=== PATIENT | female | born 1980 | race Caucasian/White ===

== ENCOUNTER 2020-11-06 23:25 | Emergency (ER) | payer SELFPAY ==
[~2020-11-06 23:25] MED LIST: ACETAMINOPHEN325 MG PO; ALLERGY RELIEF60 MG PO; ASPIRIN EC81 MG PO; ATIVAN1 MG PO; CEFUROXIME500 MG PO; CELEXA 20MG TAB20 MG PO; CELEXA40 MG PO; COLACE 100MG C100 MG PO; CYANOCOBAL1000 MCG/1 INJ; CYCLOBENZAPRINE10 MG PO; ESTRADIOL2 MG PO; FLEXERIL 10 MG10 MG PO; IBUPROFEN600 MG PO; MIRALAX17 GM PO; NORCO 5-325 TA1 EACH PO; PREDNISONE 10 M10 MG PO; PREDNISONE20 MG PO; PRILOSEC OTC20 MG PO; PROGESTERONE200 MG PO; PYRIDIUM200 MG PO; REQUIP3 MG PO; TAMIFLU75 MG PO; TOPAMAX50 MG PO; VALIUM 5 MG TAB5 MG PO; VITAMIN D21250 MCG PO; ZOFRAN ODT 4 MG4 MG PO; ZOFRAN ODT 4 MG4 MG SL
[2020-11-07 02:55] LABS: RED BLOOD COUNT 4.05 M/UL (4.00-5.10); WHITE BLOOD COUNT 7.6 K/UL (4.5-11.0)
[2020-11-07 03:05] LABS: BUN/CREATININE RATIO 13 (0-10)
[2020-11-07] MEDS ORDERED: LODINE CAP 300300 MG PO (03:36)
[2020-11-07] MEDS ORDERED: ZOFRAN ODT 4 MG4 MG PO (03:36)
[2020-11-07] MEDS ORDERED: OMNICEF 300 MG300 MG PO (03:36)
== END 2020-11-07 03:50 | disposition home or self-care (01) ==
LOC: ER1 23:25
DX: N39.0 Urinary tract infection, site not specified (principal); Z87.442 Personal history of urinary calculi; Z90.49 Acquired absence of other specified parts of digestive tract; Z90.710 Acquired absence of both cervix and uterus
CPT/HCPCS: 80053; 81001; 83605; 85025; 87086; 96374; 96375; 96376; 99284; J0696; J2270; J2405; J7030

== ENCOUNTER 2021-01-30 18:39 | Observation (INO) | payer OTHER ==
[~2021-01-30] VITALS: Ht 157.5 cm; Wt 64.4 kg
[~2021-01-30 18:39] MED LIST changes: +LODINE CAP 300300 MG PO; +OMNICEF 300 MG300 MG PO
[2021-01-30 19:42] LABS: HEMOGLOBIN 13.8 gm/dl (12.3-15.3); RED BLOOD COUNT 4.53 M/UL (4.00-5.10); WHITE BLOOD COUNT 9.9 K/UL (4.5-11.0)
[2021-01-30 19:58] LABS: BUN/CREATININE RATIO 12 (0-10)
[2021-01-31 08:52] LABS: HEMOGLOBIN 12.4 gm/dl (12.3-15.3); RED BLOOD COUNT 4.15 M/UL (4.00-5.10); WHITE BLOOD COUNT 11.5 K/UL (4.5-11.0)
[2021-01-31 09:24] LABS: BUN/CREATININE RATIO 20 (0-10)
[2021-01-31] MEDS ORDERED: CELEXA40 MG PO (10:48)
[2021-01-31] MEDS ORDERED: TOPAMAX50 MG PO (10:48)
[2021-01-31] MEDS ORDERED: SINGULAIR10 MG PO (10:49)
[2021-01-31] MEDS ORDERED: PRILOSEC OTC20 MG PO (10:49)
[2021-01-31] MEDS ORDERED: ESTRADIOL2 MG PO (10:50)
[2021-01-31] MEDS ORDERED: PROMETRIUM 200200 MG PO (10:51)
[2021-01-31] MEDS ORDERED: [UNRECOGNIZED DRUG - OTHER] SL (10:55)
[2021-02-01] MEDS ORDERED: HYDROCODON-ACE1 EAC2 PO (15:47)
[2021-02-01] MEDS ORDERED: CEFUROXIME500 MG PO (15:57)
== END 2021-02-01 17:44 | disposition home or self-care (01) ==
LOC: ER1 18:39 → CDU 01-31 00:20 → M/S 01-31 00:20
PROVIDERS: Emergency Medicine; ADMIT Emergency Medicine
DX: M54.50 Low back pain, unspecified (principal); G89.29 Other chronic pain; K21.9 Gastro-esophageal reflux disease without esophagitis; G43.909 Migraine, unspecified, not intractable, without status migrainosus; J45.909 Unspecified asthma, uncomplicated; N32.89 Other specified disorders of bladder; G25.81 Restless legs syndrome; Z20.822 Contact with and (suspected) exposure to COVID-19; Z79.890 Hormone replacement therapy; Z79.899 Other long term (current) drug therapy
CPT/HCPCS: 51798; 72131; 72158; 80048; 80053; 81001; 85025; 96374; 96375; 96376; 99284; A9577; G0378; J0696; J1170; J1650; J1885; J2270; J2360; J2920; J2930; Q9967; U0002

== ENCOUNTER 2021-02-17 19:07 | Emergency (ER) | payer OTHER ==
[~2021-02-17 19:07] MED LIST changes: +HYDROCODON-ACE1 EAC2 PO; +PROMETRIUM 200200 MG PO; +SINGULAIR10 MG PO; +[UNRECOGNIZED DRUG - OTHER] SL
[2021-02-17 21:42] LABS: HEMOGLOBIN 14.3 gm/dl (12.3-15.3); RED BLOOD COUNT 4.67 M/UL (4.00-5.10)
[2021-02-17 22:03] LABS: BUN/CREATININE RATIO 13 (0-10)
[2021-02-18] MEDS ORDERED: MUCINEX DM ER1 EACH PO (00:18)
[2021-02-18] MEDS ORDERED: IBUPROFEN800 MG PO (00:18)
[2021-02-18] MEDS ORDERED: ONDANSETRON ODT4 MG SL (00:18)
== END 2021-02-18 00:46 | disposition home or self-care (01) ==
LOC: ER1 19:07
PROVIDERS: Physician Assistant
DX: U07.1 COVID-19 (principal); J45.909 Unspecified asthma, uncomplicated; G40.909 Epilepsy, unspecified, not intractable, without status epilepticus
CPT/HCPCS: 71045; 80053; 81001; 82550; 82553; 83690; 83874; 84484; 85025; 85379; 87081; 87880; 93005; 96365; 96375; 99284; J1885; J2405; J2550; J7030; Q9967

== ENCOUNTER 2021-03-10 17:00 | Emergency (ER) | payer BC ==
[~2021-03-10 17:00] MED LIST changes: +IBUPROFEN800 MG PO; +MUCINEX DM ER1 EACH PO; +ONDANSETRON ODT4 MG SL
[2021-03-10 18:03] LABS: RED BLOOD COUNT 4.21 M/UL (4.00-5.10); WHITE BLOOD COUNT 9.4 K/UL (4.5-11.0)
[2021-03-10 19:01] LABS: BUN/CREATININE RATIO 16 (0-10)
[2021-03-11] MEDS ORDERED: LODINE CAP 300300 MG PO (00:23)
== END 2021-03-11 00:37 | disposition home or self-care (01) ==
LOC: ER1 17:00
PROVIDERS: Physician Assistant
DX: R07.89 Other chest pain (principal)
CPT/HCPCS: 71045; 73030; 80053; 82550; 82553; 83874; 84484; 85025; 85379; 85610; 85730; 93005; 96374; 96375; 99285; J1885; J2360; Q9967

== ENCOUNTER 2021-05-12 18:13 | Emergency (ER) | payer BC ==
[2021-05-12 23:37] LABS: HEMOGLOBIN 12.8 gm/dl (12.3-15.3); RED BLOOD COUNT 4.25 M/UL (4.00-5.10); WHITE BLOOD COUNT 9.3 K/UL (4.5-11.0)
[2021-05-13 00:07] LABS: BUN/CREATININE RATIO 14 (0-10)
[2021-05-13] MEDS ORDERED: PERCOCET 5/325 T1 EA PO (01:11)
== END 2021-05-13 01:35 | disposition home or self-care (01) ==
LOC: ER1 18:13
PROVIDERS: Family Medicine
DX: M54.9 Dorsalgia, unspecified (principal); M79.7 Fibromyalgia
CPT/HCPCS: 80053; 81001; 83690; 84703; 85025; 87086; 96374; 96375; 99284; J2060; J2405; J7030; Q9967

== ENCOUNTER 2021-06-01 16:24 | Emergency (ER) | payer BC ==
[~2021-06-01 16:24] MED LIST changes: +PERCOCET 5/325 T1 EA PO
[2021-06-01 18:15] LABS: RED BLOOD COUNT 4.67 M/UL (4.00-5.10); WHITE BLOOD COUNT 9.4 K/UL (4.5-11.0)
[2021-06-01 18:55] LABS: BUN/CREATININE RATIO 14 (0-10)
== END 2021-06-01 19:47 | disposition home or self-care (01) ==
LOC: ER1 16:24
PROVIDERS: Emergency Medicine
DX: R10.31 Right lower quadrant pain (principal); R10.813 Right lower quadrant abdominal tenderness; R11.2 Nausea with vomiting, unspecified; R19.7 Diarrhea, unspecified; Z87.39 Personal history of other diseases of the musculoskeletal system and connective tissue
CPT/HCPCS: 80053; 83690; 85025; 96374; 96375; 99284; J0780; J1170; J1885; J2405; Q9967

== ENCOUNTER 2021-06-26 16:47 | Emergency (ER) | payer BC ==
[2021-06-26 17:43] LABS: HEMOGLOBIN 15.1 gm/dl (12.3-15.3); RED BLOOD COUNT 4.97 M/UL (4.00-5.10); WHITE BLOOD COUNT 10.4 K/UL (4.5-11.0)
[2021-06-26 18:08] LABS: BUN/CREATININE RATIO 16 (0-10)
[2021-06-26] MEDS ORDERED: HYDROCODON-ACE1 EAC6 PO (22:34)
[2021-06-26] MEDS ORDERED: ZOFRAN ODT 4 MG4 MG GT (22:34)
== END 2021-06-26 22:45 | disposition home or self-care (01) ==
LOC: ER1 16:47
PROVIDERS: Physician Assistant
DX: R10.9 Unspecified abdominal pain (principal); Z87.442 Personal history of urinary calculi
CPT/HCPCS: 80053; 81001; 85025; 87077; 87086; 87186; 96374; 96375; 99284; J1885; J2060; J2270; J2405

== ENCOUNTER 2021-07-11 11:16 | Emergency (ER) | payer BC ==
[~2021-07-11 11:16] MED LIST changes: +HYDROCODON-ACE1 EAC6 PO; +ZOFRAN ODT 4 MG4 MG GT
[2021-07-11 13:33] LABS: HEMOGLOBIN 12.9 gm/dl (12.3-15.3); RED BLOOD COUNT 4.31 M/UL (4.00-5.10); WHITE BLOOD COUNT 7.9 K/UL (4.5-11.0)
[2021-07-11 14:03] LABS: BUN/CREATININE RATIO 14 (0-10)
[2021-07-11] MEDS ORDERED: MACROBID 100 M100 MG PO (14:46)
== END 2021-07-11 15:43 | disposition home or self-care (01) ==
LOC: ER1 11:16
PROVIDERS: Physician Assistant
DX: N39.0 Urinary tract infection, site not specified (principal); R11.2 Nausea with vomiting, unspecified
CPT/HCPCS: 80053; 81001; 83605; 85025; 87040; 96365; 96375; 99284; J1885; J2270; J2550

== ENCOUNTER → 2021-08-16 | Outpatient (CLI) | payer BC ==
[~2021-08-16] MED LIST changes: +MACROBID 100 M100 MG PO; +PHENERGAN 25 MG25 M1 PO
[2021-08-16 14:57] LABS: RED BLOOD COUNT 4.33 M/UL (4.00-5.10); WHITE BLOOD COUNT 7.6 K/UL (4.5-11.0)
[2021-08-16 15:22] LABS: BUN/CREATININE RATIO 19 (0-10)
== END ==
LOC: LAB 14:03
PROVIDERS: Family Medicine
DX: E55.9 Vitamin D deficiency, unspecified (principal); E53.8 Deficiency of other specified B group vitamins; M79.7 Fibromyalgia
CPT/HCPCS: 36415; 80053; 80307; 82607; 85027

== ENCOUNTER 2021-08-18 16:30 | Emergency (ER) | payer OTHER | END 2021-08-18 18:37 | disposition home or self-care (01) | LOC: ER1 16:30 | DX: T74.21XA Adult sexual abuse, confirmed, initial encounter (principal); M79.7 Fibromyalgia; Y07.9 Unspecified perpetrator of maltreatment and neglect | CPT/HCPCS: 99284 ==

== ENCOUNTER 2021-08-27 20:25 | Emergency (ER) | payer BC ==
[2021-08-27 22:02] LABS: HEMOGLOBIN 13.5 gm/dl (12.3-15.3); RED BLOOD COUNT 4.51 M/UL (4.00-5.10); WHITE BLOOD COUNT 7.8 K/UL (4.5-11.0)
[2021-08-27 22:17] LABS: BUN/CREATININE RATIO 8 (0-10)
[2021-08-27] MEDS ORDERED: CYCLOBENZAPRINE10 MG PO (22:50)
== END 2021-08-27 23:04 | disposition home or self-care (01) ==
LOC: ER1 20:25
PROVIDERS: Family Medicine
DX: R10.9 Unspecified abdominal pain (principal); M79.7 Fibromyalgia; R03.0 Elevated blood-pressure reading, without diagnosis of hypertension; Z90.710 Acquired absence of both cervix and uterus
CPT/HCPCS: 74018; 80053; 81001; 85025; 96374; 99284; J1885

== ENCOUNTER 2021-09-25 18:04 | Emergency (ER) | payer BC ==
[2021-09-25 19:02] LABS: HEMOGLOBIN 12.2 gm/dl (12.3-15.3); RED BLOOD COUNT 4.11 M/UL (4.00-5.10); WHITE BLOOD COUNT 6.2 K/UL (4.5-11.0)
[2021-09-25 19:46] LABS: BUN/CREATININE RATIO 11 (0-10)
== END 2021-09-25 19:55 | disposition left against medical advice (07) ==
LOC: ER1 18:04
PROVIDERS: Physician Assistant
DX: R51.9 Headache, unspecified (principal)
CPT/HCPCS: 80053; 82550; 82553; 84484; 85025; 93005; 99281